=== PATIENT | male | born 1935 | race Caucasian/White ===

== ENCOUNTER 2020-12-27 12:59 | Emergency (ER) | payer MEDICARE, OTHER ==
[2020-12-27 13:14] VITALS: BP 167/75; PULSE 72
--- NOTE | 2020-12-27 13:37 | EDM.PDOC ---
ED HPI GENERAL MEDICAL PROBLEM - General Chief Complaint: Genitourinary Problem Stated Complaint: URINATING BLOOD Time Seen by Provider: 12/27/20 13:25 Source of Information: Reports: Patient History Limitations: Reports: No Limitations - History of Present Illness INITIAL COMMENTS - FREE TEXT/NARRATIVE: 85-year-old male with a history of prostate cancer, hormone and radiology treatment considered to be in remission has developed dysuria for the past 48 hours with a small amount of hematuria at the end of urination. A little bit of pressure felt in the pelvis but no back pain, fever, nausea or vomiting or other concerns. 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 Cardiovascular History: Reports: Hypertension Respiratory History: Reports: Other (See Below) Other Respiratory History: black spot on bottom of left lung Gastrointestinal History: Reports: GERD Genitourinary History: Reports: BPH Musculoskeletal History: Reports: Back Pain, Chronic Oncologic (Cancer) History: Reports: Prostate Other Dermatologic History: exzema - Infectious Disease History Infectious Disease History: Reports: Chicken Pox, Measles, Mumps - Past Surgical History GI Surgical History: Reports: Cholecystectomy Musculoskeletal Surgical History: Reports: Other (See Below) Other Musculoskeletal Surgeries/Procedures:: herniated disc Social & Family History - Tobacco Use Years of Tobacco use: 50 Packs/Tins Daily: 0.5 - Caffeine Use Caffeine Use: Reports: Coffee - Recreational Drug Use Recreational Drug Use: No ED ROS GENERAL - Review of Systems Review Of Systems: See Below Constitutional: Denies: Fever, Chills HEENT: Reports: Other (Patient is hard of hearing) Respiratory: Denies: Shortness of Breath GI/Abdominal: Reports: Abdominal Pain (A small amount of very low abdominal discomfort, just in the suprapubic area, no distention) : Reports: Dysuria, Frequency, Hematuria, Urgency Neurological: Reports: No Symptoms Psychiatric: Reports: No Symptoms ED EXAM, RENAL/ - Physical Exam Exam: See Below Exam Limited By: No Limitations General Appearance: Alert, No Apparent Distress Respiratory/Chest: No Respiratory Distress Cardiovascular: Regular Rate, Rhythm GI/Abdominal: Normal Bowel Sounds, Soft, Non-Tender, Other (I cannot reproduce pain with palpation in the suprapubic area, no bladder distention) Neurological: Alert, Oriented Psychiatric: Normal Affect, Normal Mood Skin Exam: Warm, Dry Course - Vital Signs Last Recorded V/S: Last Vital Signs Temp 97.9 F 12/27/20 13:13 Pulse 72 12/27/20 13:13 Resp 16 12/27/20 13:13 BP 167/75 H 12/27/20 13:13 Pulse Ox - Orders/Labs/Meds Orders: Active Orders 24 hr Category Date Time Status CULTURE URINE [RM] Stat Lab 12/27/20 13:57 Received Labs: Laboratory Tests 12/27/20 Range/Units 13:30 Urine Color Yellow (YELLOW) Urine Appearance Cloudy A (CLEAR) Urine pH 5.5 (5.0-8.0) Ur Specific [place] 1.025 (1.008-1.030) Urine Protein 30 H (NEGATIVE) mg/dL Urine Glucose (UA) Negative (NEGATIVE) mg/dL Urine Ketones Negative (NEGATIVE) mg/dL Urine Occult Blood Moderate H (NEGATIVE) Urine Nitrite Negative (NEGATIVE) Urine Bilirubin Negative (NEGATIVE) Urine Urobilinogen 0.2 (0.2-1.0) EU/dL Ur Leukocyte Esterase Moderate (NEGATIVE) Urine RBC 20-30 H (0-5) Urine WBC 40-50 H (0-5) Ur Epithelial Cells Not seen Amorphous Sediment Moderate Urine Bacteria Moderate Urine Mucus Moderate - Re-Assessments/Exams Free Text/Narrative Re-Assessment/Exam: 12/27/20 13:37 A UA was obtained, it does look cloudy but not grossly hematuric. 12/27/20 13:55 UA is positive for RBCs, white cells and bacteria. It replaced on 100 mg of Macrobid twice daily for 7 full days, and a culture was initiated. We will be in touch with the patient if the culture warrants a change in medication, he can return anytime if worsening. Departure - Departure Time of Disposition: 14:11 Disposition: Home, Self-Care 01 Clinical Impression: UTI, Urinary tract infectious disease - Discharge Information Instructions: Urinary Tract Infection, Adult Referrals: Dimitry Andres MD [Primary Care Provider] - Forms: ED Department Discharge Care Plan Goals: Take antibiotic twice a day for 7 days, including 2 doses today. You should be improving within the next 2 to 3 days, but take all 7 days of antibiotic. Return in 3 to 4 days if not improving, or return anytime if worsening such as fever, increased pain, or inability to urinate. Sepsis Event Note (ED) - Evaluation Sepsis Screening Result: No Definite Risk - Focused Exam Vital Signs: Vital Signs Temp Pulse Resp BP 12/27/20 13:13 97.9 F 72 16 167/75 H - My Orders Last 24 Hours: My Active Orders 12/27/20 13:57 CULTURE URINE [RM] Stat - Assessment/Plan Last 24 Hours: My Active Orders 12/27/20 13:57 CULTURE URINE [RM] Stat
== END 2020-12-27 14:00 | disposition home or self-care (01) ==
LOC: JP.ED 12:59
DX: N39.0 Urinary tract infection, site not specified (principal); I10 Essential (primary) hypertension; N40.0 Benign prostatic hyperplasia without lower urinary tract symptoms; K21.9 Gastro-esophageal reflux disease without esophagitis; Z79.899 Other long term (current) drug therapy; Z72.0 Tobacco use
CPT/HCPCS: 81001; 87086; 87088; 87186; 99283

== ENCOUNTER 2025-05-24 15:18 | Inpatient (IN) | payer MEDICARE ==
[2025-05-24 18:51] LABS: BASOPHILS ABSOLUTE AUTO 0.04 K/uL (0.00-0.10); BASOPHILS PERCENT AUTO 0.5 % (0.1-1.3); EOSINOPHILS ABSOLUTE AUTO 0.30 K/uL (0.00-0.40); EOSINOPHILS PERCENT AUTO 3.6 % (0.0-5.4); IMMATURE GRAN ABSOLUTE AUTO 0.01 K/uL (0.00-0.23); IMMATURE GRAN PERCENT AUTO 0.1 % (0.0-0.7); LYMPHOCYTES ABSOLUTE AUTO 2.69 K/uL (0.8-3.3); LYMPHOCYTES PERCENT AUTO 32.6 % (11.4-47.7); MONOCYTES ABSOLUTE AUTO 0.72 K/uL (0.20-0.90); MONOCYTES PERCENT AUTO 8.7 % (3.3-12.6); NEUTROPHILS ABSOLUTE AUTO 4.49 K/uL (1.0-7.6); NEUTROPHILS PERCENT AUTO 54.5 % (40.0-78.1); PLATELET COUNT,PLT 128 K/uL (130-375); RED BLOOD CELL COUNT 4.00 M/uL (4.14-5.76); WHITE BLOOD CELL COUNT,WBC 8.3 K/uL (3.2-11.0)
[2025-05-24 19:06] LABS: INR 1.1
[2025-05-24 19:09] LABS: A/G RATIO 1.1 (1.2-2.2); ALANINE AMINOTRANSFERASE,ALT 59 U/L (12-78); ASPARTATE AMNIOTRANSFERASE,AST 37 U/L (15-37); BILIRUBIN TOTAL 0.4 mg/dL (0.2-1.0); BLOOD UREA NITROGEN,BUN 17 mg/dL (7-18); CARBON DIOXIDE,CO2 28 mmol/L (21-32); CHLORIDE,CL 106 mmol/L (100-108); CREATININE 1.1 mg/dL (0.8-1.3); EST CRCL DRUG DOSING (CG) 38.85 mL/min; ESTIMATED GFR 65 mL/min (>60); GLUCOSE RANDOM 96 mg/dL (74-106); POTASSIUM,K 3.9 mmol/L (3.6-5.2); PROTEIN TOTAL,TP 7.3 g/dL (6.4-8.2); SODIUM,NA 142 mmol/L (140-148)
[2025-05-24] MEDS: Iopamidol 755 Mg/ML 100 ML Bottle IV SCH (20:27)
[2025-05-25] MEDS ORDERED: Ondansetron 4 MG/2 ML SDV IV PRN (00:10)
[2025-05-25] MEDS ORDERED: Ondansetron 4 MG Tab.DIS PO PRN (00:10)
[2025-05-25] MEDS: Gadoteridol 279.3 MG/ML 20 ML SDV IV SCH (09:14)
[2025-05-26 10:10] VITALS: PULSE 72
[2025-05-26 10:11] VITALS: BP 136/64
== END 2025-05-26 12:55 | disposition home or self-care (01) | DRG 66 ==
LOC: JP.ED 15:18 → JP.ICU 23:38 → OBSVTOIN 05-26 10:17
PROVIDERS: ADMIT Registered Nurse; ATTEND Internal Medicine
DX: I63.531 Cerebral infarction due to unspecified occlusion or stenosis of right posterior cerebral artery (principal); I10 Essential (primary) hypertension; K21.9 Gastro-esophageal reflux disease without esophagitis; Z79.899 Other long term (current) drug therapy; N40.0 Benign prostatic hyperplasia without lower urinary tract symptoms; Z66 Do not resuscitate; R29.810 Facial weakness; R47.81 Slurred speech; I65.01 Occlusion and stenosis of right vertebral artery; M54.9 Dorsalgia, unspecified; G89.29 Other chronic pain; Z85.46 Personal history of malignant neoplasm of prostate; F17.200 Nicotine dependence, unspecified, uncomplicated; Z90.49 Acquired absence of other specified parts of digestive tract; Z90.79 Acquired absence of other genital organ(s)
CPT/HCPCS: 36415; 70450; 70496; 70498; 70553 ×2; 80053; 85025; 85610; 92610; 93005; 93306; 97161; 97165; 99223; 99232; 99285; A9270 ×16; A9579 ×2; G0378 ×3; Q9967; 99238